=== PATIENT | female | born 1975 | race Caucasian/White ===

== ENCOUNTER 2020-04-15 07:51 | Day surgery (SDC) | payer OTHER ==
[2020-04-14 10:40] LABS: BLOOD UREA NITROGEN,BUN 9 mg/dL (7.0-18.0); CARBON DIOXIDE,CO2 26.1 mmol/L (21.0-32.0); CHLORIDE,CL 104 mmol/L (98-107); GLUCOSE RANDOM 98 mg/dL (74-106); POTASSIUM,K 3.9 mmol/L (3.5-5.1); SODIUM,NA 141 mmol/L (136-145)
[~2020-04-15 07:51] MED LIST: Fluorescein 5 ML Vial ONE; Glycopyrrolate 0.2 MG/ML SDV ONE; Lidocaine 2% 5 ML SDV ONE; Midazolam 1 MG/ML 2 ML SDV ONE; Ondansetron 4 MG/2 ML SDV ONE; Propofol 200 MG/20 ML SDV ONE; Rocuronium Bromide 50 MG/5 ML Syringe ONE; Sodium Chloride 0.9% 10 ML SDV IV PRN; Sodium Chloride 0.9% 10 ML Syringe FLUSH PRN; Sodium Chloride 0.9% 2.5 ML Syringe FLUSH PRN; ceFAZolin 2 GM in Premix Bag 1 BAG IV ONE; fentaNYL 250 MCG/5 ML SDV ONE
[2020-04-15] MEDS ORDERED: Lactated Ringers 1,000 ML IV SCH (08:00)
[2020-04-15] MEDS ORDERED: Lidocaine 2% 5 ML SDV ONE (08:16)
--- NOTE | 2020-04-15 08:32 | PCM.PREANE ---
Preanesthetic Assessment - Anesthesia/Transfusion/Family Hx Anesthesia History: No Prior Anesthesia Family History of Anesthesia Reaction: No Transfusion History: No Prior Transfusion(s) Intubation History: Unknown - Review of Systems General: No Symptoms Pulmonary: No Symptoms Cardiovascular: No Symptoms Gastrointestinal: No Symptoms Neurological: No Symptoms Other: Reports: None - Physical Assessment Vital Signs: Last Vital Signs Temp 36.1 C 04/15/20 08:05 Pulse 82 04/15/20 08:05 Resp 16 04/15/20 08:05 BP 133/70 04/15/20 08:05 Pulse Ox 97 04/15/20 08:05 Height: 5 ft 4 in Weight: 78.925 kg ASA Class: 2 Mental Status: Alert & Oriented x3 Airway Class: Mallampati = 1 Dentition: Reports: Normal Dentition Thyro-Mental Finger Breadths: 3 Mouth Opening Finger Breadths: 3 ROM/Head Extension: Full Lungs: Clear to Auscultation, Normal Respiratory Effort Cardiovascular: Regular Rate, Regular Rhythm - Lab Values: Laboratory Last Values WBC 10.38 K/uL (4.0-11.0) 04/14/20 08:55 RBC 4.98 M/uL (4.30-5.90) 04/14/20 08:55 Hgb 14.7 g/dL (12.0-16.0) 04/14/20 08:55 Hct 44.8 % (36.0-46.0) 04/14/20 08:55 MCV 90.0 fL (80.0-98.0) 04/14/20 08:55 MCH 29.5 pg (27.0-32.0) 04/14/20 08:55 MCHC 32.8 g/dL (31.0-37.0) 04/14/20 08:55 RDW Std Deviation 45.0 fl (28.0-62.0) 04/14/20 08:55 RDW Coeff of [place] 14 % (11.0-15.0) 04/14/20 08:55 Plt Count 246 K/uL (150-400) 04/14/20 08:55 MPV 10.80 fL (7.40-12.00) 04/14/20 08:55 Nucleated RBC % 0.0 /100WBC 04/14/20 08:55 Nucleated RBCs # 0 K/uL 04/14/20 08:55 Sodium 141 mmol/L (136-145) 04/14/20 08:55 Potassium 3.9 mmol/L (3.5-5.1) 04/14/20 08:55 Chloride 104 mmol/L (98-107) 04/14/20 08:55 Carbon Dioxide 26.1 mmol/L (21.0-32.0) 04/14/20 08:55 BUN 9 mg/dL (7.0-18.0) 04/14/20 08:55 Creatinine 0.8 mg/dL (0.6-1.0) 04/14/20 08:55 Est Cr Clr Drug Dosing 76.68 mL/min 04/14/20 08:55 Estimated GFR (MDRD) > 60.0 ml/min 04/14/20 08:55 Glucose 98 mg/dL (74-106) 04/14/20 08:55 Calcium 8.9 mg/dL (8.5-10.1) 04/14/20 08:55 HCG, Qual NEGATIVE (NEG) 04/14/20 08:55 Blood Type O NEGATIVE 04/14/20 08:55 Antibody Screen NEGATIVE 04/14/20 08:55 - Allergies Allergies/Adverse Reactions: Allergies Allergy/AdvReac Type Severity Reaction Status Date / Time No Known Allergies Allergy Verified 04/09/20 11:34 - Blood Blood Available: No - Anesthesia Plan Pre-Op Medication Ordered: None - Acknowledgements Anesthesia Type Planned: General Anesthesia Pt an Appropriate Candidate for the Planned Anesthesia: Yes Alternatives and Risks of Anesthesia Discussed w Pt/Guardian: Yes Pt/Guardian Understands and Agrees with Anesthesia Plan: Yes PreAnesthesia Questionnaire [facility] History: Reports: - Past Surgical History Head Surgeries/Procedures: Reports: None - SUBSTANCE USE Smoking Status *Q: Current Every Day Smoker (1 ppd) Tobacco Use Within Last Twelve Months: Cigarettes Recreational Drug Use History: No - HOME MEDS Home Medications: Home Meds . [No Known Home Meds] 04/09/20 [History] - CURRENT (IN HOUSE) MEDS Current Meds: Current Medications Lactated Ringer's (Ringers, Lactated) 1,000 mls @ 100 mls/hr IV ASDIRECTED JUAN JOSÉ Sodium Chloride (Saline Flush) 10 ml FLUSH ASDIRECTED PRN PRN Reason: Keep Vein Open Sodium Chloride (Saline Flush) 2.5 ml FLUSH ASDIRECTED PRN PRN Reason: Keep Vein Open Sodium Chloride (Normal Saline) 10 ml IV ASDIRECTED PRN PRN Reason: IV Use Discontinued Medications Fentanyl (Sublimaze) Confirm Administered Dose 250 mcg .ROUTE .STK-MED ONE Stop: 04/15/20 07:12 Fluorescein Sodium (Ak-Fluor) Confirm Administered Dose 5 ml .ROUTE .STK-MED ONE Stop: 04/15/20 07:45 Glycopyrrolate (Robinul) Confirm Administered Dose 0.4 mg .ROUTE .STK-MED ONE Stop: 04/15/20 07:11 Cefazolin Sodium/Dextrose 2 gm (/ Premix) 50 mls @ 100 mls/hr IV ONETIME ONE Stop: 04/14/20 09:16 Lidocaine (Xylocaine-Mpf 2%) Confirm Administered Dose 5 ml .ROUTE .STK-MED ONE Stop: 04/15/20 07:11 Lidocaine (Xylocaine-Mpf 2%) Confirm Administered Dose 5 ml .ROUTE .STK-MED ONE Stop: 04/15/20 08:17 Midazolam HCl (Versed 1 Mg/Ml) Confirm Administered Dose 2 mg .ROUTE .STK-MED ONE Stop: 04/15/20 07:12 Ondansetron HCl (Zofran) Confirm Administered Dose 4 mg .ROUTE .STK-MED ONE Stop: 04/15/20 07:11 Propofol (Diprivan 20 Ml) Confirm Administered Dose 200 mg .ROUTE .STK-MED ONE Stop: 04/15/20 07:11 Rocuronium [place] (Rocuronium [place]) Confirm Administered Dose 50 mg .ROUTE .STK-MED ONE Stop: 04/15/20 07:11
[2020-04-15] MEDS ORDERED: Sodium Chloride 0.9% 20 ML ONE (09:29)
[2020-04-15] MEDS ORDERED: ceFAZolin 1 GM Vial ONE (09:29)
[2020-04-15] MEDS ORDERED: ePHEDrine 50 MG/ML SDV ONE (09:44)
[2020-04-15] MEDS ORDERED: fentaNYL 100 MCG/2 ML SDV ONE (10:08)
[2020-04-15] MEDS ORDERED: HYDROmorphone 2 MG/ML Syringe ONE (10:09)
[2020-04-15] MEDS ORDERED: Dexamethasone 4 MG/ML 5 ML MDV ONE (10:13)
[2020-04-15] MEDS ORDERED: Furosemide 40 MG/4 ML VIAL ONE (10:23)
[2020-04-15] MEDS ORDERED: Octyl 2-Cyanoacrylate 1 Tube ONE (10:42)
[2020-04-15] MEDS ORDERED: Albuterol 0.083% 2.5 MG/3 ML Neb Soln NEB PRN (10:45)
[2020-04-15] MEDS ORDERED: Naloxone 0.4 MG/ML Syringe IVPUSH PRN (10:45)
[2020-04-15] MEDS ORDERED: EPINEPHrine 1:10,000 1 MG/10 ML Syringe IVPUSH PRN (10:45)
[2020-04-15] MEDS ORDERED: Atropine 0.1 MG/ML 10 ML Syringe IVPUSH PRN ×2 (10:45)
[2020-04-15] MEDS ORDERED: fentaNYL 100 MCG/2 ML SDV IVPUSH PRN (10:45)
[2020-04-15] MEDS ORDERED: Glycopyrrolate 0.2 MG/ML SDV ONE (10:45)
[2020-04-15] MEDS ORDERED: 50% Dextrose in Water 50 ML Syringe IVPUSH PRN (10:45)
[2020-04-15] MEDS ORDERED: Ondansetron 4 MG/2 ML SDV IVPUSH PRN (10:54)
[2020-04-15] MEDS ORDERED: Acetaminophen/oxyCODONE 325-5 MG Tab PO PRN (10:54)
[2020-04-15] MEDS ORDERED: Ketorolac 30 MG/ML SDV IVPUSH ONE (10:54)
[2020-04-15] MEDS ORDERED: Morphine 4 MG/ML Syringe IVPUSH PRN (10:54)
[2020-04-15] MEDS ORDERED: Promethazine 25 MG/ML SDV IM PRN (10:54)
--- NOTE | 2020-04-15 10:57 | PCM.OPNOTE ---
- General Post-Op/Procedure Note Date of Surgery/Procedure: 04/15/20 Operative Procedure(s): TLH,LSO,RS and cysto. Pre Op Diagnosis: bleeding Post-Op Diagnosis: Same Anesthesia Technique: General ET Tube Primary Surgeon: Mark Lima EBL in mLs: 125 Complications: None Condition: Good
[2020-04-15] MEDS ORDERED: Acetaminophen 1,000 MG in Premix Bag 1 BAG IV ONE (11:47)
--- NOTE | 2020-04-15 12:17 | PCM.POSTAN ---
POST ANESTHESIA ASSESSMENT - MENTAL STATUS Mental Status: Alert - VITAL SIGNS Vital Signs: Last Vital Signs Temp 36.1 C 04/15/20 08:05 Pulse 76 04/15/20 12:02 Resp 12 04/15/20 12:02 BP 88/64 L 04/15/20 12:02 Pulse Ox 100 04/15/20 12:02 - RESPIRATORY Respiratory Status: Respiratory Rate WNL - CARDIOVASCULAR CV Status: Pulse Rate WNL - GASTROINTESTINAL GI Status: No Symptoms - POST OP HYDRATION Hydration Status: Adequate & Stable
--- NOTE | 2020-04-15 14:30 | OR ---
SURGEON: Mark Lima MD DATE OF PROCEDURE: 04/15/2020 PREOPERATIVE DIAGNOSIS: Menometrorrhagia, left ovarian cyst. POSTOPERATIVE DIAGNOSIS: Menometrorrhagia, left ovarian cyst. OPERATIONS PERFORMED: Multiple-puncture diagnostic laparoscopy, total laparoscopic hysterectomy, left salpingo-oophorectomy and right salpingectomy, preserving the right ovary, and cystoscopy. PRIMARY SURGEON: Mark Lima MD. METAL SPRAYER PROTECTIVE COATING: OR tech. ANESTHESIA: General endotracheal intubation. Brandon Whitman and Dr. Corbin. ESTIMATED BLOOD LOSS: 125 mL. COMPLICATIONS: None. FINDING: Uterus is about 10-week size. There is a 5-cm cyst in the left ovary. INDICATION FOR SURGERY: Eden referred to the admit note. PROCEDURE IN DETAIL: The patient was brought to the OR, properly identified. After adequate level of anesthesia, the patient was placed in lithotomy position. Prepped and draped in sterile fashion as usual. Harris catheter was placed in the bladder and the colpotomizer with manipulator placed in the uterus for manipulation, and the appropriate balloon was inflated. Once that was done, the operation shifted abdominally. Stab wound done beneath the umbilicus. The Veress needle was placed in the peritoneal cavity and the cavity insufflated with 3.5 L of carbon dioxide, and utilizing the Visiport technique, the abdomen entered laparoscopically. Once that was done, the patient was placed in steep Trendelenburg, 10/12 trocar placed in the left iliac fossa and 5 mm trocar in the right iliac fossa. The operation started by identifying the landmark of the pelvis. Once that was done, then using the [place] Harmonic scalpel, the superior pedicle on the left side was coagulated, transected, and the tubes and ovary included with the specimen. The round ligament done in the same way, and then, the broad ligament downward pushing the bladder completely away from the operative field and the uterine vessel was coagulated, transected with Cholo Harmonic scalpel at the level of the manipulator. The same thing was done on the right side except we preserved the right ovary. Once that done, a circular incision in the vaginal mucosa around the tip of the manipulator, detaching the cervix from its attachment to the vagina. The uterus and rest of the specimen removed vaginally. Pneumoperitoneum re-established by placing vaginal pack in the vagina. Then, we proceeded to close the vaginal cuff laparoscopically with 2-0 PDS interrupted, that done without any problem. While we doing that, we asked the Anesthesia to give the patient fluorescein, and after closing the vagina, the Harris catheter removed and cystoscopy performed. The bladder was intact. Both ureteric orifices seen with the dye coming from both of them. Thus, patency of both ureters verified. Once that was done, the cystoscope was removed, and then, the laparoscopic trocar instrument was removed, and then the laparoscopic incision closed in layer. The instrument and sponge count was correct. The patient tolerated the procedure well, went to recovery room in stable general condition. BEVERLY / KAYLAN /[id number]
[2020-04-15] MEDS: Acetaminophen/oxyCODONE 325-5 MG Tab PO PRN ×2 (15:56→20:00)
[2020-04-15] MEDS: Ketorolac 30 MG/ML SDV IVPUSH PRN ×2 (17:43→23:38)
[2020-04-16 06:25] LABS: BLOOD UREA NITROGEN,BUN 14 mg/dL (7.0-18.0); CHLORIDE,CL 103 mmol/L (98-107); GLUCOSE RANDOM 106 mg/dL (74-106); POTASSIUM,K 3.8 mmol/L (3.5-5.1); SODIUM,NA 137 mmol/L (136-145)
--- NOTE | 2020-04-16 07:09 | PCM48HPAN ---
Post Anesthesia Note - EVALUATION WITHIN 48HRS OF ANESTHETIC Vital Signs in Normal Range: Yes Patient Participated in Evaluation: Yes Respiratory Function Stable: Yes Airway Patent: Yes Cardiovascular Function Stable: Yes Hydration Status Stable: Yes Pain Control Satisfactory: Yes Nausea and Vomiting Control Satisfactory: Yes Mental Status Recovered: Yes Vital Signs: Last Vital Signs Temp 98.1 F 04/16/20 04:00 Pulse 59 L 04/16/20 04:00 Resp 12 04/16/20 04:00 BP 109/59 L 04/16/20 04:00 Pulse Ox 97 04/16/20 04:00
[2020-04-16] MEDS: Acetaminophen/oxyCODONE 325-5 MG Tab PO PRN (07:49)
--- NOTE | 2020-04-16 08:34 | PCM.SURGPN ---
- General Info Date of Service: 04/16/20 POD#: 1 Functional Status: Reports: Pain Controlled - Review of Systems General: Reports: No Symptoms HEENT: Reports: No Symptoms Pulmonary: Reports: No Symptoms Cardiovascular: Reports: No Symptoms Gastrointestinal: Reports: No Symptoms Genitourinary: Reports: No Symptoms Musculoskeletal: Reports: No Symptoms Skin: Reports: No Symptoms Neurological: Reports: No Symptoms Psychiatric: Reports: No Symptoms - Patient Data Vitals - Most Recent: Last Vital Signs Temp 36.6 C 04/16/20 08:11 Pulse 78 04/16/20 08:11 Resp 16 04/16/20 08:11 BP 130/63 04/16/20 08:11 Pulse Ox 98 04/16/20 08:11 Weight - Most Recent: 78.925 kg Lab Results Last 24 Hrs: Laboratory Results - last 24 hr 04/16/20 04/16/20 Range/Units 05:25 05:25 WBC 17.39 H (4.0-11.0) K/uL RBC 3.99 L (4.30-5.90) M/uL Hgb 11.7 L (12.0-16.0) g/dL Hct 36.3 (36.0-46.0) % MCV 91.0 (80.0-98.0) fL MCH 29.3 (27.0-32.0) pg MCHC 32.2 (31.0-37.0) g/dL RDW Std Deviation 45.6 (28.0-62.0) fl RDW Coeff of Namrata 14 (11.0-15.0) % Plt Count 227 (150-400) K/uL MPV 11.00 (7.40-12.00) fL Neut % (Auto) 73.9 (48.0-80.0) % Lymph % (Auto) 18.7 (16.0-40.0) % [place] % (Auto) 7.1 (0.0-15.0) % Eos % (Auto) 0.2 (0.0-7.0) % Baso % (Auto) 0.1 (0.0-1.5) % Neut # (Auto) 12.9 H (1.4-5.7) K/uL Lymph # (Auto) 3.3 H (0.6-2.4) K/uL [place] # (Auto) 1.2 H (0.0-0.8) K/uL Eos # (Auto) 0.0 (0.0-0.7) K/uL Baso # (Auto) 0.0 (0.0-0.1) K/uL Nucleated RBC % 0.0 /100WBC Nucleated RBCs # 0 K/uL Sodium 137 (136-145) mmol/L Potassium 3.8 (3.5-5.1) mmol/L Chloride 103 (98-107) mmol/L Carbon Dioxide 25.0 (21.0-32.0) mmol/L BUN 14 (7.0-18.0) mg/dL Creatinine 0.8 (0.6-1.0) mg/dL Est Cr Clr Drug Dosing 76.68 mL/min Estimated GFR (MDRD) > 60.0 ml/min Glucose 106 (74-106) mg/dL Calcium 9.1 (8.5-10.1) mg/dL Med Orders - Current: Current Medications Albuterol (Proventil Neb Soln) 2.5 mg NEB ONETIME PRN PRN Reason: Wheezing Atropine Sulfate (Atropine 0.1 Mg/Ml) 0.5 mg IVPUSH ASDIRECTED PRN PRN Reason: Hypo-perfusion Atropine Sulfate (Atropine 0.1 Mg/Ml) 1 mg IVPUSH ASDIRECTED PRN PRN Reason: Hypo-Perfusion Dextrose/Water (Dextrose 50% In Water) 50 ml IVPUSH ASDIRECTED PRN PRN Reason: Hypoglycemia Epinephrine HCl (Epinephrine 1:10,000) 1 mg IVPUSH ASDIRECTED PRN PRN Reason: ACLS Guidelines Fentanyl (Sublimaze) 50 - 100 mcg IVPUSH Q5M PRN PRN Reason: Pain Lactated Ringer's (Ringers, Lactated) 1,000 mls @ 100 mls/hr IV ASDIRECTED JUAN JOSÉ Last Infusion: 04/15/20 13:00 Dose: 0 mls/hr Documented by: Ketorolac Tromethamine (Toradol) 30 mg IVPUSH Q6H PRN PRN Reason: Pain (severe 7-10) Stop: 04/20/20 10:54 Last Admin: 04/15/20 23:38 Dose: 30 mg Documented by: Morphine Sulfate (Morphine) 4 mg IVPUSH Q2H PRN PRN Reason: Pain (severe 7-10) Last Admin: 04/15/20 17:42 Dose: 4 mg Documented by: Naloxone HCl (Narcan) 0.1 mg IVPUSH ASDIRECTED PRN PRN Reason: Respiratory Depression Ondansetron HCl (Zofran) 4 mg IVPUSH Q6H PRN PRN Reason: Nausea/Vomiting Last Admin: 04/15/20 15:57 Dose: 4 mg Documented by: Oxycodone/Acetaminophen (Percocet 325-5 Mg) 1 tab PO Q4H PRN PRN Reason: Pain (moderate 4-6) Oxycodone/Acetaminophen (Percocet 325-5 Mg) 2 tab PO Q4H PRN PRN Reason: Pain (moderate 4-6) Last Admin: 04/16/20 07:49 Dose: 2 tab Documented by: Promethazine HCl (Phenergan) 25 mg IM Q6H PRN PRN Reason: Nausea/Vomiting Sodium Chloride (Saline Flush) 10 ml FLUSH ASDIRECTED PRN PRN Reason: Keep Vein Open Sodium Chloride (Saline Flush) 2.5 ml FLUSH ASDIRECTED PRN PRN Reason: Keep Vein Open Sodium Chloride (Normal Saline) 10 ml IV ASDIRECTED PRN PRN Reason: IV Use Discontinued Medications Cefazolin Sodium (Ancef) Confirm Administered Dose 2 gm .ROUTE .STK-MED ONE Stop: 04/15/20 09:30 Dexamethasone (Dexamethasone) Confirm Administered Dose 20 mg .ROUTE .STK-MED ONE Stop: 04/15/20 10:14 Ephedrine Sulfate (Ephedrine Sulfate) Confirm Administered Dose 50 mg .ROUTE . STK-MED ONE Stop: 04/15/20 09:45 Fentanyl (Sublimaze) Confirm Administered Dose 250 mcg .ROUTE .STK-MED ONE Stop: 04/15/20 07:12 Fentanyl (Sublimaze) Confirm Administered Dose 100 mcg .ROUTE .STK-MED ONE Stop: 04/15/20 10:09 Fluorescein Sodium (Ak-Fluor) Confirm Administered Dose 5 ml .ROUTE .STK-MED ONE Stop: 04/15/20 07:45 Furosemide (Lasix) Confirm Administered Dose 40 mg .ROUTE .STK-MED ONE Stop: 04/15/20 10:24 Glycopyrrolate (Robinul) Confirm Administered Dose 0.4 mg .ROUTE .STK-MED ONE Stop: 04/15/20 07:11 Glycopyrrolate (Robinul) Confirm Administered Dose 0.2 mg .ROUTE .STK-MED ONE Stop: 04/15/20 10:46 Hydromorphone HCl (Dilaudid) Confirm Administered Dose 2 mg .ROUTE .STK-MED ONE Stop: 04/15/20 10:10 Cefazolin Sodium/Dextrose 2 gm (/ Premix) 50 mls @ 100 mls/hr IV ONETIME ONE Stop: 04/14/20 09:16 Sodium Chloride (Normal Saline) Confirm Administered Dose 20 mls @ as directed .ROUTE .STK-MED ONE Stop: 04/15/20 09:30 Acetaminophen 1,000 mg/ Premix 100 mls @ 400 mls/hr IV NOW ONE Stop: 04/15/20 12:01 Last Admin: 04/15/20 11:58 Dose: 400 mls/hr Documented by: Acetaminophen (Ofirmev) Confirm Administered Dose 100 mls @ as directed .ROUTE .STK-MED ONE Stop: 04/15/20 11:51 Ketorolac Tromethamine (Toradol) 30 mg IVPUSH ONETIME ONE Stop: 04/15/20 10:55 Last Admin: 04/15/20 11:38 Dose: 30 mg Documented by: Lidocaine (Xylocaine-Mpf 2%) Confirm Administered Dose 5 ml .ROUTE .STK-MED ONE Stop: 04/15/20 07:11 Lidocaine (Xylocaine-Mpf 2%) Confirm Administered Dose 5 ml .ROUTE .STK-MED ONE Stop: 04/15/20 08:17 Midazolam HCl (Versed 1 Mg/Ml) Confirm Administered Dose 2 mg .ROUTE .STK-MED ONE Stop: 04/15/20 07:12 Octyl Cyanoacrylate (Dermabond Advance) Confirm Administered Dose 1 applic .ROUTE .STK-MED ONE Stop: 04/15/20 10:43 Ondansetron HCl (Zofran) Confirm Administered Dose 4 mg .ROUTE .STK-MED ONE Stop: 04/15/20 07:11 Propofol (Diprivan 20 Ml) Confirm Administered Dose 200 mg .ROUTE .STK-MED ONE Stop: 04/15/20 07:11 Rocuronium [place] (Rocuronium [place]) Confirm Administered Dose 50 mg .ROUTE .STK-MED ONE Stop: 04/15/20 07:11 - Exam Wound/Incisions: Healing Well General: Alert, Oriented HEENT: Pupils Equal Neck: Supple Lungs: Clear to Auscultation, Normal Respiratory Effort Cardiovascular: Regular Rate, Regular Rhythm GI/Abdominal Exam: Normal Bowel Sounds, Soft, Non-Tender, No Organomegaly, No Distention, No Abnormal Bruit, No Mass, Pelvis Stable Extremities: Normal Inspection, Normal Range of Motion, Non-Tender, No Pedal Edema, Normal Capillary Refill Skin: Warm, Dry, Intact Neurological: No New Focal Deficit Psy/Mental Status: Alert, Normal Affect, Normal Mood Sepsis Event Note - Evaluation Sepsis Screening Result: No Definite Risk - Focused Exam Vital Signs: Vital Signs Temp Pulse Resp BP Pulse Ox 04/16/20 08:11 36.6 C 78 16 130/63 98 04/16/20 04:00 36.7 C 59 L 12 109/59 L 97 04/16/20 00:21 36.8 C 96 14 99/57 L 96 Date Exam was Performed: 04/16/20 Time Exam was Performed: 08:32 - Problem List Review Problem List Initiated/Reviewed/Updated: Yes - My Orders Last 24 Hours: Active Orders 24 hr Category Date Time Status Patient Status [ADT] Routine ADT 04/15/20 10:54 Active Antiembolic Devices [RC] PER UNIT ROUTINE Care 04/15/20 10:55 Active Blood Glucose Check, Bedside [RC] PRN Care 04/15/20 10:45 Active Notify Provider Vital Signs [RC] ASDIRECTED Care 04/15/20 10:45 Active Oxygen Therapy [RC] ASDIRECTED Care 04/15/20 10:54 Active RT Incentive Spirometry [RC] Q2HWA Care 04/15/20 10:54 Active Up With Assistance [RC] PER UNIT ROUTINE Care 04/15/20 10:54 Active Up ad Maricruz [RC] PER UNIT ROUTINE Care 04/15/20 10:54 Active Vital Signs [RC] PER UNIT ROUTINE Care 04/15/20 10:54 Active Regular Diet [DIET] Diet 04/15/20 Lunch Active Acetaminophen/oxyCODONE [Percocet 325-5 MG] Med 04/15/20 10:54 Active 1 tab PO Q4H PRN Acetaminophen/oxyCODONE [Percocet 325-5 MG] Med 04/15/20 10:54 Active 2 tab PO Q4H PRN Albuterol [Proventil Neb Soln] Med 04/15/20 10:45 Active 2.5 mg NEB ONETIME PRN Atropine [Atropine 0.1 MG/ML] Med 04/15/20 10:45 Active 0.5 mg IVPUSH ASDIRECTED PRN Atropine [Atropine 0.1 MG/ML] Med 04/15/20 10:45 Active 1 mg IVPUSH ASDIRECTED PRN Dextrose 50% in Water Med 04/15/20 10:45 Active 50 ml IVPUSH ASDIRECTED PRN EPINEPHrine [EPINEPHrine 1:10,000] Med 04/15/20 10:45 Active 1 mg IVPUSH ASDIRECTED PRN Ketorolac [Toradol] Med 04/15/20 10:54 Active 30 mg IVPUSH Q6H PRN Lactated Ringers [Ringers, Lactated] 1,000 ml Med 04/15/20 08:00 Active IV ASDIRECTED Morphine Med 04/15/20 10:54 Active 4 mg IVPUSH Q2H PRN Naloxone [Narcan] Med 04/15/20 10:45 Active 0.1 mg IVPUSH ASDIRECTED PRN Ondansetron [Zofran] Med 04/15/20 10:54 Active 4 mg IVPUSH Q6H PRN Promethazine [Phenergan] Med 04/15/20 10:54 Active 25 mg IM Q6H PRN fentaNYL [Sublimaze] Med 04/15/20 10:45 Active 50 - 100 mcg IVPUSH Q5M PRN Peripheral IV Discontinue [OM.PC] Routine Oth 04/15/20 10:54 Ordered Sequential Compression Device [OM.PC] Per Unit Routine Oth 04/15/20 10:54 Ordered Resuscitation Status Routine Resus Stat 04/15/20 10:54 Ordered Medication Orders Albuterol (Proventil Neb Soln) 2.5 mg NEB ONETIME PRN PRN Reason: Wheezing Atropine Sulfate (Atropine 0.1 Mg/Ml) 0.5 mg IVPUSH ASDIRECTED PRN PRN Reason: Hypo-perfusion Atropine Sulfate (Atropine 0.1 Mg/Ml) 1 mg IVPUSH ASDIRECTED PRN PRN Reason: Hypo-Perfusion Dextrose/Water (Dextrose 50% In Water) 50 ml IVPUSH ASDIRECTED PRN PRN Reason: Hypoglycemia Epinephrine HCl (Epinephrine 1:10,000) 1 mg IVPUSH ASDIRECTED PRN PRN Reason: ACLS Guidelines Fentanyl (Sublimaze) 50 - 100 mcg IVPUSH Q5M PRN PRN Reason: Pain Lactated Ringer's (Ringers, Lactated) 1,000 mls @ 100 mls/hr IV ASDIRECTED JUAN JOSÉ Last Infusion: 04/15/20 13:00 Dose: 0 mls/hr Documented by: Admin: 04/15/20 08:20 Dose: 100 mls/hr Documented by: JANUSZ Ketorolac Tromethamine (Toradol) 30 mg IVPUSH Q6H PRN PRN Reason: Pain (severe 7-10) Stop: 04/20/20 10:54 Last Admin: 04/15/20 23:38 Dose: 30 mg Documented by: Admin: 04/15/20 17:43 Dose: 30 mg Documented by: VERNON Morphine Sulfate (Morphine) 4 mg IVPUSH Q2H PRN PRN Reason: Pain (severe 7-10) Last Admin: 04/15/20 17:42 Dose: 4 mg Documented by: VERNON Naloxone HCl (Narcan) 0.1 mg IVPUSH ASDIRECTED PRN PRN Reason: Respiratory Depression Ondansetron HCl (Zofran) 4 mg IVPUSH Q6H PRN PRN Reason: Nausea/Vomiting Last Admin: 04/15/20 15:57 Dose: 4 mg Documented by: VERNON Oxycodone/Acetaminophen (Percocet 325-5 Mg) 1 tab PO Q4H PRN PRN Reason: Pain (moderate 4-6) Oxycodone/Acetaminophen (Percocet 325-5 Mg) 2 tab PO Q4H PRN PRN Reason: Pain (moderate 4-6) Last Admin: 04/16/20 07:49 Dose: 2 tab Documented by: Admin: 04/15/20 20:00 Dose: 2 tab Documented by: Admin: 04/15/20 15:56 Dose: 2 tab Documented by: VERNON Promethazine HCl (Phenergan) 25 mg IM Q6H PRN PRN Reason: Nausea/Vomiting Sodium Chloride (Saline Flush) 10 ml FLUSH ASDIRECTED PRN PRN Reason: Keep Vein Open Sodium Chloride (Saline Flush) 2.5 ml FLUSH ASDIRECTED PRN PRN Reason: Keep Vein Open Sodium Chloride (Normal Saline) 10 ml IV ASDIRECTED PRN PRN Reason: IV Use - Assessment Assessment (Free Text/Narrative):: Status post total scope hysterectomy postoperative day #1 patient is doing well no vaginal bleeding on regular diet she is voiding and passing gas. - Plan Plan (Free Text/Narrative):: Patient will be discharged today the postvasectomy instructions given to the patient there is no restriction on her diet she was given a prescription for Narco 5/325 for postoperative pain and she have an appointment to see me in the office in 2 weeks
== END 2020-04-16 10:05 | disposition home or self-care (01) ==
LOC: MW.SDS 07:51 → MW.OB 12:15 → MW.SDS 04-16 10:05
PROVIDERS: ATTEND Obstetrics & Gynecology
DX: N80.0 Endometriosis of uterus (principal); N83.02 Follicular cyst of left ovary; E66.3 Overweight; N95.2 Postmenopausal atrophic vaginitis; F17.210 Nicotine dependence, cigarettes, uncomplicated; Z68.29 Body mass index [BMI] 29.0-29.9, adult; Z79.899 Other long term (current) drug therapy
CPT/HCPCS: 36415; 58552; 80048; 84703; 85025; 85027; 86850; 86900; 86901; 88307; A9270; J0131; J0690; J1100; J1170; J1885; J1940; J2001; J2250; J2270; J2405; J2704; J3010; J3490; J7120; 00840

== ENCOUNTER 2025-08-14 16:31 | Emergency (ER) | payer BC ==
[2025-08-14] MEDS ORDERED: Sodium Chloride 0.9% 2.5 ML Syringe FLUSH PRN (16:47)
[2025-08-14] MEDS ORDERED: Sodium Chloride 0.9% 10 ML Syringe FLUSH PRN (16:47)
[2025-08-14] MEDS: Ketorolac 30 MG/ML SDV IVPUSH ONE (17:45)
[2025-08-14 17:47] LABS: BASOPHILS ABSOLUTE AUTO 0.08 K/uL (0.00-0.20); BASOPHILS PERCENT AUTO 0.7 % (0.0-1.0); EOSINOPHILS ABSOLUTE AUTO 0.11 K/uL (0.00-0.45); EOSINOPHILS PERCENT AUTO 0.9 % (0.0-6.0); IMMATURE GRAN ABSOLUTE AUTO 0.03 K/uL (0.00-0.05); IMMATURE GRAN PERCENT AUTO 0.3 % (0.0-0.4); LYMPHOCYTES ABSOLUTE AUTO 4.40 K/uL (1.00-4.80); LYMPHOCYTES PERCENT AUTO 37.1 % (24.0-44.0); MEAN PLATELET VOLUME 11.0 fL (9.4-12.3); MONOCYTES ABSOLUTE AUTO 0.77 K/uL (0.00-0.80); MONOCYTES PERCENT AUTO 6.5 % (0.0-8.0); NEUTROPHILS ABSOLUTE AUTO 6.48 K/uL (1.80-7.70); NEUTROPHILS PERCENT AUTO 54.5 % (41.0-71.0); NRBC ABSOLUTE 0.00 K/uL (0.00-0.02); NRBC PERCENT 0.0 /100WBC (0.0-0.2); PLATELET COUNT,PLT 229 K/uL (150-400); RED BLOOD CELL COUNT 4.32 M/uL (4.10-5.30); WHITE BLOOD CELL COUNT,WBC 11.87 K/uL (3.9-11.3)
[2025-08-14 18:18] LABS: A/G RATIO 1.2 (0.9-1.6); ALANINE AMINOTRANSFERASE,ALT 37.0 IU/L (14-63); ASPARTATE AMNIOTRANSFERASE,AST 26.0 IU/L (15-37); BILIRUBIN TOTAL 0.1 mg/dL (0.2-1.0); BLOOD UREA NITROGEN,BUN 20.0 mg/dL (7.0-18.0); CARBON DIOXIDE,CO2 30.9 mmol/L (21.0-32.0); CHLORIDE,CL 105.0 mmol/L (98-107); CREATININE 0.9 mg/dL (0.6-1.0); EST CRCL DRUG DOSING (CG) 64.58 mL/min; ESTIMATED GFR 78.0 mL/min (>60); GLUCOSE RANDOM 90.0 mg/dL (74-106); POTASSIUM,K 4.3 mmol/L (3.5-5.1); PROTEIN TOTAL,TP 6.7 g/dL (6.4-8.2); SODIUM,NA 142.0 mmol/L (136-145)
[2025-08-14] MEDS: Ondansetron 4 MG/2 ML SDV IVPUSH ONE (18:30)
[2025-08-14 18:44] LABS: APPEARANCE,URINE CLEAR; GLUCOSE,URINE NEGATIVE (NEGATIVE); OCCULT BLOOD,URINE TRACE-INTACT (NEGATIVE)
[2025-08-14 18:56] LABS: EPITHELIAL CELLS,URINE RARE (NONE-FEW)
[2025-08-14] MEDS: Iopamidol 755 Mg/ML 100 ML Bottle IVPUSH ONE (20:15)
== END 2025-08-14 21:40 | disposition home or self-care (01) ==
LOC: MW.ED 16:31
DX: K42.9 Umbilical hernia without obstruction or gangrene (principal); R91.1 Solitary pulmonary nodule; F17.200 Nicotine dependence, unspecified, uncomplicated; Z79.899 Other long term (current) drug therapy; Z75.3 Unavailability and inaccessibility of health-care facilities
CPT/HCPCS: 36415; 74177; 80053; 81001; 83690; 83735; 85025; 96361; 96374; 96375; 99284; J1885; J2405; J7030; Q9967; J1171